=== PATIENT | female | born 1965 | race Caucasian/White ===

== ENCOUNTER 2020-04-28 08:03 | Outpatient (NON) | payer BC, SELFPAY ==
[2020-04-28 21:41] LABS: SARS-CoV-2 RNA PCR Negative
== END 2020-04-28 08:04 ==
PROVIDERS: Family Provider Emergency Medicine; PCP Emergency Medicine; Visit Provider Emergency Medicine
DX: B34.9 Viral infection, unspecified (principal); Z20.822 Contact with and (suspected) exposure to COVID-19
CPT/HCPCS: C9803; U0003; U0005

== ENCOUNTER 2020-05-11 13:42 | Emergency (ER) | payer BC, SELFPAY ==
--- NOTE | 2020-05-11 13:48 | ED.FEMALEGU ---
HPI - Female Genitourinary General Chief complaint: Urogenital-Female Stated complaint: PAINFUL URINATION Time Seen by Provider: 05/11/20 13:48 Source: patient and RN notes reviewed Mode of arrival: ambulatory Limitations: no limitations History of Present Illness HPI Narrative: 55 year old female who presents to [facility] care with complaints of dysuria, painful lower abdominal discomfort over her suprapubic region, urinary frequency and urgency. Patient states that she had virtual visit with her physician on the and was put on Bactrim for her symptoms with no improvement in her symptoms, states Bactrim makes her feel like she is hallucinating at times. Patient states history of difficulty with emptying of bladder and also history of some problems with constipation. Patient states that she is taking AZO at this time for her symptoms with urine noted to be orangy in color. MD elicited complaint: dysuria, UTI and other (urgency and frequency) Pertinent past history: recurrent UTIs Location of symptoms: suprapubic Severity: moderate Female Urogenital Radiation: Suprapubic Severity scale (1-10): 8 Quality of pain: sharp and aching Consistency: progressively worsening Vaginal discharge: none Vaginal bleeding: none Urinary symptoms: Dysuria, Urgency, Frequency and Hematuria Exacerbating factors: urination Relieving factors: none Associated symptoms: abdominal pain Treatment prior to arrival: other (on Bactrim) Sexual activity: No Patient : No Related Data Home Medications Medication Instructions Recorded Confirmed alprazolam 05/11/20 escitalopram oxalate mg 05/11/20 sertraline mg 05/11/20 zolpidem 05/11/20 Allergies Allergy/AdvReac Type Severity Reaction Status Date / Time blue dye Allergy Mild Hives / Verified 04/23/17 10:08 Red Face iodine Allergy Unknown Hives / Verified 04/23/17 10:08 Red Face Review of Systems Review of Systems: Narrative: CONSTITUTIONAL: Denies fever, chills, or sweats. EYES: Denies visual changes, redness, or discharge. ENT: Denies rhinorrhea, congestion, sore throat, or otalgia. CARDIOVASCULAR: Denies chest pain, palpitations, or edema. RESPIRATORY: Denies cough or dyspnea. GASTROINTESTINAL: Positive for suprapubic abdominal pain,no nausea, vomiting, or diarrhea. GENITOURINARY: Positive for dysuria and hematuria. SKIN: Denies rash or itching. MUSCULOSKELETAL: Denies back pain, joint pain, or myalgia. NEUROLOGIC: Denies headache, numbness, or weakness. PSYCHIATRIC: Positive history of anxiety or depression. All systems reviewed & are unremarkable except as noted in HPI and below PMFSH Past Medical History Medical History (Updated 05/11/20 @ 17:07 by Leora Cross NP) Depression Keratosis Retention of urine, unspecified UTI (urinary tract infection) Surgical History Surgical History (Updated 05/11/20 @ 17:08 by Leora Cross NP) History of carpal tunnel surgery Family History Family History (Updated 05/11/20 @ 17:10 by Leora Cross NP) Other No significant family history Social History Social History (Updated 05/11/20 @ 17:10 by Leora Cross NP) Smoking status: Unknown if ever smoked Alcohol intake: unknown Substance use: never Gender identity (if verbalized by the patient): Female Comments At time of signature, agree with nursing past medical, surgical, social and family history. There is no relevant family history pertinent to the presenting complaint Exam Narrative: Exam Narrative: GENERAL: Well-appearing, well-nourished, and in no acute distress. HEAD: Normocephalic, atraumatic. EYES: PERRLA and EOMI. ENT: Nares clear, no rhinorrhea or epistaxis. Mucous membranes moist.TMs normal with good light reflex, throat pink with no redness or pain NECK: Supple.no lymphadenopathy CHEST: Clear to auscultation. No respiratory distress.SAO2 100% on room air HEART: Regular rate and rhythm. No murmur heard. Normal periphera
[2020-05-11 13:49] VITALS: BP 125/76; PULSE 111; RESP 16; TEMP 36.9; O2SAT 100
== END 2020-05-11 14:20 | disposition home or self-care (01) ==
PROVIDERS: Emergency Provider Registered Nurse; PCP Emergency Medicine
DX: N39.0 Urinary tract infection, site not specified (principal); F32.9 Major depressive disorder, single episode, unspecified
CPT/HCPCS: 81003; 87086; 99213; G0463

== ENCOUNTER 2020-05-19 08:38 | Emergency (ER) | payer BC, SELFPAY ==
[2020-05-19 08:56] VITALS: BP 125/69; PULSE 88; RESP 16; TEMP 36.4; O2SAT 100
--- NOTE | 2020-05-19 08:59 | ED.FEMALEGU ---
HPI - Female Genitourinary General Chief complaint: Urogenital-Female Stated complaint: urinary issues Time Seen by Provider: 05/19/20 08:50 Source: patient Mode of arrival: ambulatory Limitations: no limitations History of Present Illness HPI Narrative: A 55-year-old female comes into the emergency room for multiple complaints. Patient has multiple withstanding chronic issues that she states seem to be bothering her today. She is going to physical therapy for pelvic floor dysfunction. She notes a lot of pain and cramping in her pelvis. She states that this is consistent with her chronic pain. Patient is also complaining of a burning sensation through her stomach and up into her chest. She states that this gets worse after eating and drinking. She has not taken any medications for this. She endorses a lot of belching associated with this. Patient also notes that she has had numbness on the right side of her face for 1 month. This has been unchanged. Related Data Home Medications Medication Instructions Recorded Confirmed alprazolam 05/11/20 escitalopram oxalate mg 05/11/20 sertraline mg 05/11/20 zolpidem 05/11/20 Allergies Allergy/AdvReac Type Severity Reaction Status Date / Time blue dye Allergy Mild Hives / Verified 05/19/20 09:03 Red Face iodine Allergy Unknown Hives / Verified 05/19/20 09:03 Red Face sulfamethoxazole AdvReac Hallucinati Verified 05/19/20 09:03 [From Bactrim] ng trimethoprim [From Bactrim] AdvReac Hallucinati Verified 05/19/20 09:03 ng Review of Systems Review of Systems: Narrative: CONSTITUTIONAL: Denies fever, chills, or sweats. EYES: Denies visual changes, redness, or discharge. ENT: Denies rhinorrhea, congestion, sore throat, or otalgia. CARDIOVASCULAR: Denies chest pain, palpitations, or edema. RESPIRATORY: Denies cough or dyspnea. GASTROINTESTINAL: Denies abdominal pain, nausea, vomiting, or diarrhea. GENITOURINARY: Denies dysuria or hematuria. SKIN: Denies rash or itching. MUSCULOSKELETAL: Denies back pain, joint pain, or myalgia. NEUROLOGIC: Denies headache, numbness, dizziness, or weakness. PSYCHIATRIC: Denies anxiety or depression. [facility] Past Medical History Medical History Depression Keratosis Retention of urine, unspecified UTI (urinary tract infection) Surgical History Surgical History History of carpal tunnel surgery Family History Family History Father FH: prostate cancer Depression Grandparent Breast cancer Social History Social History Smoking status: Unknown if ever smoked Alcohol intake: never Substance use: never Gender identity (if verbalized by the patient): Female Exam Narrative: Exam Narrative: GENERAL: Well-appearing, well-nourished, and in no acute distress. HEAD: Normocephalic, atraumatic. EYES: PERRLA and EOMI. ENT: Nares clear, no rhinorrhea or epistaxis. Mucous membranes moist. Oropharynx without tonsillar hypertrophy exudate or other lesions. Bilateral TMs pearly cannon nonbulging NECK: Supple. No adenopathy or masses. No carotid bruits or JVD CHEST: Clear to auscultation. No respiratory distress. No wheezes rales or rhonchi HEART: Regular rate and rhythm. No murmur heard. Normal peripheral pulses. ABDOMEN: Soft, nontender, nondistended, normal active bowel sounds. EXTREMITIES: Normal range of motion. No edema. SKIN: Warm, dry, no rash. NEURO: No focal deficits. Alert and oriented x3. PSYCH: Normal mood and affect. Course Reevaluation(s) Reevaluation #1: Patient resting comfortably at this time, reevaluated her after she got the GI cocktail. Noted that some of her symptoms had improved. Explained to the patient that is most of her symptoms and issues were chronic she needs to follow-up with
[2020-05-19 09:10] LABS: Basophils Percent Auto 0.6 % (0.2-1.2); Eosinophils Absolute Auto 0.1 K/mm3 (0-0.3); Eosinophils Percent Auto 1.7 % (0-4.4); Hematocrit 40.4 % (37.0-47.0); Hemoglobin 13.1 g/dL (12.0-15.0); Immature Granulocyte Absolute 0.02 K/mm3 (0.00-0.031); Immature Granulocyte Percent A 0.4 % (0-0.5); Lymphocytes Absolute Auto 0.56 K/mm3 (0.9-3.2); Lymphocytes Percent Auto 11.6 % (18.3-44.2); Mean Corpuscular HGB Conc 32.4 g/dl (32-36); Mean Corpuscular Hemoglobin 27.7 pg (26-34); Mean Corpuscular Volume 85.4 fl (80-100); Mean Platelet Volume 9.3 fl (7.4-10.4); Monocytes Absolute Auto 0.4 K/mm3 (0.1-0.6); Monocytes Percent Auto 8.7 % (2.6-8.5); Neutrophils Absolute Auto 3.7 K/mm3 (1.3-6.7); Platelet Count Result 241 k/mm3 (150-375); Red Blood Count 4.73 M/mm3 (4.2-5.4); Red Cell Distribution Width 14.4 % (11.5-14.5); White Blood Count 4.8 K/mm3 (4.5-10.0)
[2020-05-19 09:21] LABS: Alanine Aminotransferase 11 U/L (4-35); Albumin Level 4.5 g/dL (3.5-5.1); Alkaline Phosphatase 73 U/L (38-126); Anion Gap 10 mmol/L (8-16); Aspartate Amino Transferase 21 U/L (14-36); Bilirubin,Total 0.7 mg/dL (0.2-1.3); Blood Urea Nitrogen 12 mg/dL (7-17); Calcium 9.3 mg/dL (8.4-10.2); Carbon Dioxide 24 mmol/L (22-30); Chloride 107 mmol/L (98-107); Estimated CRCL calculation 50 ml/min; Estimated Glomerular Filt Rate > 60; Glucose 115 mg/dL (65-105); Potassium 3.7 mmol/L (3.4-5.0); Sodium 141 mmol/L (137-145)
[2020-05-19 09:23] LABS: Add Urine Microscopic? YES; Appearance Urine Clear (Clear); Bacteria Urine Trace /hpf; Bilirubin Urine Negative (Negative); Blood Urine 3+ (Negative); Color Urine Yellow (Yellow); Glucose Urine UA Negative (Negative); Ketones Urine Trace mg/dL (Negative); Leukocyte Esterase Ur Trace LEU/UL (Negative); Mucus Urine Few /lpf; Nitrate Urine Negative (Negative); Protein Urine 1+ mg/dL (Negative); RBC Urine 21-50 /hpf (0-2); Specific Grav Ur 1.024 (1.001-1.035); Squamous Epithelial Cell Urine Occasional /hpf (Few); Urobilinogen Urine Negative mg/dL (<2.0)
[2020-05-19] MEDS: KETOROLAC 30 MG/ML VIAL (*BKC) 15 MG IV PUSH (09:28)
[2020-05-19] MEDS: HYDROcodone/acetaminophen (*CRX) 5-325 MG TABLET 1 TAB PO (09:29)
[2020-05-19] MEDS: methocarbamoL 500 MG TABLET PO (09:29)
--- NOTE | 2020-05-19 09:31 | ECG_ITS ---
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
--- NOTE | 2020-05-19 09:33 | PC.NURSE ---
Patient now reports that the burning on her right side is traveling down into her chest and that she is having chest pain from her neck to her breast. EDP aware, EKG order placed.
[2020-05-19 09:37] VITALS: BP 130/77; PULSE 72; RESP 18; O2SAT 99
[2020-05-19 10:11] LABS: Lipase 97 U/L (23-300)
[2020-05-19] MEDS: BELLADONNA ALK/PHENOB ELIX 10 ML, MAG HYDROX/ALUMINUM HYD/SIMETH 30 ML, LIDOCAINE HCL 2... PO (10:16)
[2020-05-19 10:24] LABS: Troponin I < 0.012 ng/mL (0.000-0.034)
[2020-05-19] MEDS: ONDANSETRON INJ 4 MG/2 ML VIAL (12:30)
[2020-05-19 12:31] VITALS: BP 124/70; BP 134/72; PULSE 78; PULSE 84; RESP 16; O2SAT 97; O2SAT 99
--- NOTE | 2020-05-19 12:33 | PC.NURSE ---
1225- pt c/ nausea vomited small amount frothy liquid. Dr. Ravi aware. orders received and carried out.
== END 2020-05-19 12:41 | disposition home or self-care (01) ==
PROVIDERS: Emergency Provider Emergency Medicine; PCP Emergency Medicine
DX: R10.2 Pelvic and perineal pain (principal); K21.9 Gastro-esophageal reflux disease without esophagitis; F32.9 Major depressive disorder, single episode, unspecified; Z87.440 Personal history of urinary (tract) infections
CPT/HCPCS: 36415; 80053; 81001; 83690; 84484; 85025; 93005; 96374; 96375; 99284; A9270; J1885; J2405

== ENCOUNTER → 2020-07-13 15:19 | Outpatient (CLI) | payer BC, SELFPAY ==
--- NOTE | ~2020-07-13 | US_ITS ---
US renal BI DATE: 07/13/2020 15:44 INDICATION: Hematuria. Urinary urgency, pain and burning. TECHNIQUE: Real-time imaging of the kidneys and urinary bladder COMPARISON: 11/29/2006 ultrasound of the kidneys FINDINGS: Right kidney measures approximately 9.0 cm length, left kidney 9.6 cm. No renal mass lesion or hydronephrosis is evident. The urinary bladder is unremarkable. IMPRESSION: No evidence of hydronephrosis Reviewed, dictated and finalized at Location [facility]. Reviewed, dictated and finalized at location A.
--- NOTE | ~2020-07-13 | MM_ITS ---
EXAMINATION: MM screening shin BI w isabela HISTORY: Screening TECHNIQUE: Craniocaudal and mediolateral oblique 3-D tomosynthesis images were obtained and synthetic 2-D images were generated. CAD analysis was submitted and interpreted. COMPARISON: Comparison to multiple prior studies sequentially, with oldest reviewed study dated 03/02. BREAST PARENCHYMAL COMPOSITION: The breasts are extremely dense, which lowers the sensitivity of mamm ography FINDINGS: There is no evidence of suspicious mass, calcification, or architectural distortion to sugg est malignancy in either breast. There has been no suspicious interval change. IMPRESSION: 1. No mammographic evidence of malignancy. 2. Recommend routine screening mammography in one year. BI-RADS Category 1: Negative Reviewed, dictated and finalized at location A.
== END ==
PROVIDERS: PCP Family Medicine; Visit Provider Family Medicine
DX: Z12.39 Encounter for other screening for malignant neoplasm of breast (principal); R31.9 Hematuria, unspecified; M62.89 Other specified disorders of muscle
CPT/HCPCS: 76775; 77063; 77067

== ENCOUNTER 2020-10-25 14:40 | Outpatient (CLI) | payer BC, SELFPAY ==
--- NOTE | ~2020-10-25 | XR_ITS ---
XR ankle RT min 3V 10/25/2020 14:56 Indication: Right ankle pain Procedure: 4 views right ankle Comparison: No prior studies for comparison. Findings: There is an oblique minimally displaced distal fibular fracture. Ankle mortise intact. Noemí r dome is normal. There is moderate lateral soft tissue swelling. No other fracture. Impression: 1: Oblique minimally displaced distal fibular fracture. Reviewed, dictated and finalized at location A. Impression: 1: Oblique minimally displaced distal fibular fracture.
== END 2020-10-25 14:41 ==
PROVIDERS: PCP Family Medicine; Visit Provider Physician Assistant
DX: S82.434A Nondisplaced oblique fracture of shaft of right fibula, initial encounter for closed fracture (principal)
CPT/HCPCS: 73610

== ENCOUNTER → 2021-08-25 15:08 | Outpatient (CLI) | payer BC, SELFPAY ==
--- NOTE | ~2021-08-25 | MM_ITS ---
EXAMINATION: MM screening shin BI w isabela HISTORY: Screening mammogram TECHNIQUE: Craniocaudal and mediolateral oblique 3-D tomosynthesis images were obtained and synthetic 2-D images were generated. CAD analysis was submitted and interpreted. COMPARISON: 07/13/2020, 05/13/2017, 02/28/2015 bilateral screening mammogram examinations BREAST PARENCHYMAL COMPOSITION: The breasts are heterogeneously dense, which may obscure small masses . FINDINGS: There is no evidence of suspicious mass, calcification, or architectural distortion to sugg est malignancy in either breast. There has been no suspicious interval change. IMPRESSION: 1. No mammographic evidence of malignancy. 2. Recommend routine screening mammography in one year. BI-RADS Category 1: Negative Reviewed, dictated and finalized at location A.
== END ==
PROVIDERS: PCP Family Medicine; Visit Provider Family Medicine
DX: Z12.31 Encounter for screening mammogram for malignant neoplasm of breast (principal)
CPT/HCPCS: 77063; 77067

== ENCOUNTER → 2023-08-28 14:57 | Outpatient (CLI) | payer OTHER, SELFPAY ==
--- NOTE | ~2023-08-28 | XR_ITS ---
EXAM: XR knee RT min 4V, XR knee LT min 4V DATE: 08/28/2023 15:20 HISTORY: RT and LT knee pain/swelling when kneeling/months/no injury . COMPARISON: None available. FINDINGS: Decreased mineralization. No fracture or dislocation. Old proximal tibial NOF. Tricompartm ental right knee osteoarthritis, moderate in the medial compartment. Tricompartmental mild left knee osteoarthritis. No erosion or periosteal change. Soft tissues within normal limits. Small volume bila teral joint effusions. IMPRESSION: No acute osseous finding in the right or left knees. Reviewed, dictated and finalized at location K. IMPRESSION: No acute osseous finding in the right or left knees.
== END ==
PROVIDERS: PCP Nurse Practitioner Family; Visit Provider Nurse Practitioner Family
DX: M25.561 Pain in right knee (principal); M25.562 Pain in left knee
CPT/HCPCS: 73564

== ENCOUNTER 2024-04-13 08:45 | Outpatient (CLI) | payer OTHER, SELFPAY ==
--- NOTE | ~2024-04-13 | MM_ITS ---
EXAMINATION: MM screening shin BI w isabela HISTORY: Screening mammogram TECHNIQUE: Craniocaudal and mediolateral oblique 3-D tomosynthesis images were obtained and synthetic 2-D images were generated. CAD analysis was submitted and interpreted. COMPARISON: 08/25/2021, 07/13/2020 BREAST PARENCHYMAL COMPOSITION:Dense: The breasts are heterogeneously dense, which may obscure small masses. FINDINGS: No suspicious mass, calcification, or architectural distortion are identified in either jas ast to suggest malignancy. There has been no suspicious interval change. IMPRESSION: No mammographic evidence of malignancy. Recommend routine screening mammography in one year. BI-RADS Category 1: Negative Reviewed, dictated and finalized at location . 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
== END 2024-04-13 08:46 | disposition home or self-care (01) ==
LOC: ANHIMG 08:47
PROVIDERS: PCP Nurse Practitioner Family; Visit Provider Nurse Practitioner Family
DX: Z12.31 Encounter for screening mammogram for malignant neoplasm of breast (principal)
CPT/HCPCS: 77063; 77067

== ENCOUNTER 2024-06-01 06:53 | Outpatient (CLI) | payer OTHER, SELFPAY | END 2024-06-01 06:54 | disposition home or self-care (01) | PROVIDERS: PCP Nurse Practitioner Family; Visit Provider Nurse Practitioner Family | DX: R92.30 Dense breasts, unspecified (principal); N64.4 Mastodynia | CPT/HCPCS: 77049; A9577; C8908 ==

== ENCOUNTER 2024-07-01 12:30 | Emergency (ER) | payer OTHER, SELFPAY ==
--- NOTE | ~2024-07-01 | CT_ITS ---
EXAMINATION: CT abdomen pelvis w con DATE: 07/01/2024 16:54 INDICATION: Abdominal pain TECHNIQUE: Computed tomography (CT) of the abdomen and pelvis was performed with 100 mL Omnipaque-350 intravenous contrast. Automated exposure control and iterative reconstruction technique were employe d. The dose-length product was 213.23 mGy-cm. COMPARISON: None FINDINGS: Discoid atelectasis in the bilateral lower lobes. Heart size is normal. No pericardial or pleural eff usion. There are few small hepatic cysts the largest measuring up to 1 cm. Dependent sludge versus ti ny gallstones within the normal-appearing gallbladder. No intrahepatic extrahepatic ductal or ductal dilation. Subtle subcentimeter hypoenhancing splenic lesion most likely a hemangioma. Pancreas and bi lateral adrenal glands are normal. There are small bilateral renal cysts measuring up to 7 mm in the left kidney. Normal appendix. Scattered fluid throughout the colon consistent with nonspecific diarrh ea. No bowel obstruction. Bladder is normal. Anteverted uterus and bilateral adnexa are unremarkable. No free intraperitoneal gas or fluid. No pathologically enlarged abdominal or pelvic lymphadenopathy . Increased prominence of the bilateral parametrial vessels and left gonadal vein which can be seen w ith pelvic vasculature congestion syndrome. Mild lumbar and lower thoracic spondylosis. Transitional L5 segment, sacralized on the left. IMPRESSION: 1. Fluid throughout the colon consistent with nonspecific diarrhea. Correlate clinically for gastroen teritis. 2. Sludge versus tiny gallstones in the otherwise normal gallbladder. No intra or extra hepatic bilia ry ductal dilation. Reviewed, dictated and finalized at location A. IMPRESSION: 1. Fluid throughout the colon consistent with nonspecific diarrhea. Correlate c linically for gastroenteritis. 2. Sludge versus tiny gallstones in the otherwise normal gallbladder. No intra or extra hepatic biliary ductal dilation.
--- NOTE | ~2024-07-01 | XR_ITS ---
XR abdomen/kub 1V 07/01/2024 14:31 INDICATION: Constipation TECHNIQUE: KUB COMPARISON: None FINDINGS: Bowel gas pattern is normal. There is no evidence of free air, mass, organomegaly, ascites or obstruction. No abnormal calculi are seen. There are pelvic phleboliths. The bones appear intact . IMPRESSION: 1: No acute abdominal abnormality identified. Reviewed, dictated and finalized at location A.
[2024-07-01 12:33] VITALS: BP 147/89; PULSE 104; RESP 16; TEMP 36.8; O2SAT 100
--- NOTE | 2024-07-01 12:37 | ED.ABDPAIN ---
HPI - Abdominal Pain General Chief Complaint: Abdominal Pain Stated Complaint: constipated Time Seen by Provider: 07/01/24 12:33 Source: patient Mode of arrival: ambulatory Limitations: no limitations History of Present Illness HPI narrative: 59 years old white female came to the ED from home complaining of lower abdominal pain and no bowel movement for the last 7 days. She denies any fever, chills, nausea, vomiting or urinary symptoms. Patient denies having similar symptoms in the past. History of anxiety, depression. She does not smoke or drink or use drugs. No history of abdominal surgery. Patient been using [id number] medication including Fleet enema without any response Related Data Allergies Allergy/AdvReac Type Severity Reaction Status Date / Time blue dye Allergy Mild Hives / Verified 05/18/24 12:58 Red Face sulfamethoxazole (From AdvReac Hallucinati Verified 05/18/24 12:58 Bactrim) ng trimethoprim (From Bactrim) AdvReac Hallucinati Verified 05/18/24 12:58 ng Review of Systems Review of Systems: All systems reviewed & are unremarkable except as noted in HPI and below PMFSH Past Medical History Medical History Breast pain, left Dense breast tissue on mammogram Dense breast Dysuria Right knee pain Left knee pain Microscopic hematuria Screening for breast cancer Seasonal allergies Skin Abnormalities Seborrheic keratosis Insomnia Anxiety Encounter to establish care Pelvic floor dysfunction Sciatica Keratosis Retention of urine, unspecified Depression UTI (urinary tract infection) Surgical History Surgical History History of carpal tunnel surgery Family History Family History Father FH: prostate cancer Depression Grandparent Breast cancer Social History Social History Smoking status: Never smoker Alcohol intake: never Substance use: never Lack of Transportation: No Lack of Food: Never True Current Housing: I Have Housing Concerned About Future Housing: No Difficulty Paying Gas/Electric Bills: No Difficulty Paying for Meds: No Currently Unemployed: YES Education: Trade/Vocational Certificate Difficulty w/ Childcare or Family Care: No Gender identity (if verbalized by the patient): Female Exam Narrative: General appearance: Well-developed, well-nourished Skin: Normal color Head: Normocephalic, nontraumatic Eyes: Clear conjunctiva ENT: Oropharynx normal, ears normal, nose normal Neck: Supple, nontender Chest and respiratory: Airway patent, no respiratory distress, no accessory muscle use Heart: Regular rate/rhythm Abdomen: Soft, mild suprapubic tenderness, no organomegaly, quiet bowel sounds Vascular: Normal peripheral pulses, normal capillary refill. 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, no gross motor deficit Course Vital Signs Vital signs: Vital Signs Temperature 36.8 C 07/01/24 12:33 Pulse Rate 104 H 07/01/24 12:33 Respiratory Rate 16 07/01/24 12:33 Blood Pressure 147/89 H 07/01/24 12:33 Pulse Oximetry 100 07/01/24 12:33 Oxygen Delivery Room Air 07/01/24 12:33 Temperature 36.7 C 07/01/24 17:19 Pulse Rate 97 07/01/24 17:19 Respiratory Rate 18 07/01/24 17:19 Blood Pressure 123/89 07/01/24 17:19 Pulse Oximetry 100 07/01/24 17:19 Oxygen Delivery Room Air 07/01/24 12:33 MDM - Abdominal Pain MDM Narrative Medical decision making narrative: Patient came with abdominal pain and constipation for 7 days Vital signs showing blood pressure 147/89 otherwise insignificant abnormality Physical examination showing mild tenderness suprapubic area Differential diagnosis include constipation, urinary tract infection, colitis, diverticulitis, intra-abdominal tumor. Blood workup today includes CBC, CMP, lipase showed WBC 5.1, HEMOGLOBIN 15.3, CREATININE 1.0, OTHERWISE INSIGNIFICANT Urinalysis showed 3+ BLOOD WHICH COULD BE INDICATING URINARY TRACT INFECTION PATIENT PRESENTED WITH SUPRAPUBIC PAIN CT abdomen and pelvis with IV contrast showed FLUID THROUGH OUT THE COLON CONSISTENT WITH NONSPECIFIC DIARRHEA WHICH HIGH LIKELY SECONDARY TO [id number] STOOL SOFTENER AND LAXATIVE OVER THE LAST 7 DAYS. DIAGNOSIS ABDOMINAL PAIN, HEMATURIA PATIENT HAS BEEN VISITING THE BATHROOM BACK IN 4 SINCE ARRIVAL TO THE EMERGENCY ROOM WITH QUITE A BIT OF DIARRHEA WHICH IS SECONDARY TO THE X-RAY LAXATIVE AND STOOL SOFTENER HAD IN THE LAST FEW DAYS DISCHARGED ON CIPRO 500 B.I.D. FOR 5 DAYS, METAMUCIL, DICYCLOMINE DISCHARGE THE PT WAS DISCHARGED TO HOME.THE PT,S CONDITION UPON DISCHARGE WAS FAIR,EDUCATION WAS PROVIDED TO THE PT IN REFERENCE TO THE FINAL IMPRESSION,DISCHARGE STUDY RESULTS,TREATMENT,PROGNOSIS AND NEED FOR FOLLOW UP . Differential Diagnosis Differential diagnosis: Likely other ( ABOVE) Medical Records Attestation: I reviewed the patient's medical records. Lab Data Attestation: I reviewed the patient's lab results. 07/01/24 14:08 07/01/24 14:08 Labs: Lab Results 07/01/24 Range/Units 14:08 WBC 5.1 (4.5-10.0) K/mm3 RBC 5.08 (4.2-5.4) M/mm3 Hgb 15.3 H (12.0-15.0) g/dL Hct 44.7 (37.0-47.0) % MCV 88.0 (80-100) fl MCH 30.1 (26-34) pg MCHC 34.2 (32-36) g/dl RDW 12.7 (11.5-14.5) % Plt Count 249 (150-375) k/mm3 MPV 10.4 (7.4-10.4) fl Immature Gran % (Auto) 0.4 (0-0.5) % Neut % (Auto) 75.2 H (45.5-73.1) % Lymph % (Auto) 13.5 L (18.3-44.2) % [place] % (Auto) 8.0 (2.6-8.5) % Eos % (Auto) 2.3 (0-4.4) % Baso % (Auto) 0.6 (0.2-1.2) % Lymph # (Auto) 0.69 L (0.9-3.2) K/mm3 [place] # (Auto) 0.4 (0.1-0.6) K/mm3 Eos # (Auto) 0.1 (0-0.3) K/mm3 Baso # (Auto) 0.0 (0.0-0.1) K/mm3 Abs Immat Gran (auto) 0.02 (0.00-0.031) K/mm3 Absolute Neuts (auto) 3.9 (1.3-6.7) K/mm3 Absolute Nucleated RBC 0.000 (0.0-0.012) K/mm3 Nucleated RBC % 0.0 (0.0-0.2) % Sodium 140 (137-145) mmol/L Potassium 3.8 (3.4-5.0) mmol/L Chloride 108 H (98-107) mmol/L Carbon Dioxide 17 L (22-30) mmol/L Anion Gap 15 H (4-12) mmol/L BUN 12 (7-17) mg/dL Creatinine 1.01 H (0.7-1.0) mg/dL Estim Creat Clear Calc 39 ml/min Estimated GFR 56 L (59 - ) Glucose 105 (65-110) mg/dL Calcium 9.9 (8.4-10.2) mg/dL Total Bilirubin 0.7 (0.2-1.3) mg/dL AST 25 (14-36) U/L ALT 16 (6-35) U/L Alkaline Phosphatase 92 (38-126) U/L Total Protein 8.0 (6.3-8.2) g/dL Albumin 5.0 (3.5-5.1) g/dL Lipase 109 (23-300) U/L Urine Color Yellow (Yellow) Urine Appearance Clear (Clear) Urine pH 5.5 (5.0-9.0) Ur Specific [place] 1.025 (1.001-1.035) Urine Protein Trace (Negative) mg/dL Urine Glucose (UA) Negative (Negative) mg/dL Urine Ketones Trace H (Negative) mg/dL Ur Blood (Man) 3+ H (Negative) Urine Nitrate Negative (Negative) Urine Bilirubin Negative (Negative) Urine Urobilinogen 1.0 (<2.0) mg/dL Leukocyte Esterase Rfl Negative (Negative) OSIEL/UL Urine RBC 21-50 H (0-2) /hpf Urine WBC 0-5 (0-3) /hpf Ur Squamous Epith Cells None seen (Few) /hpf Urine Bacteria None seen /hpf Urine Casts 0-2 Imaging Data Radiologist's impression: ITS Impressions Abdomen X-Ray 07/01/24 14:32 IMPRESSION: 1: No acute abdominal abnormality identified. Abdomen/Pelvis CT 07/01/24 17:12 IMPRESSION: 1. Fluid throughout the colon consistent with nonspecific diarrhea. Correlate clinically for gastroenteritis. 2. Sludge versus tiny gallstones in the otherwise normal gallbladder. No intra or extra hepatic biliary ductal dilation. Critical Care Time Critical Care Time Critical Care Time: No Discharge Plan Discharge Clinical Impression: Abdominal pain, Hematuria Patient Disposition: Home, Self-Care Condition: Stable Instructions: Hematuria (ED), Abdominal Pain (ED) Additional Instructions: RETURN IF SYMPTOMS ARE WORSENING , CALL YOUR FAMILY PHYSICIAN FOR APPOINTMENT, TAKE TYLENOL NEEDED FOR ACHES AND PAIN, CONTINUE HOME MEDICATIONS. STOP LAXATIVE AND ENEMAS ENCOURAGE FLUID INTAKE GET METAMUCIL [id number] Patient Language: Hungarian Prescriptions: New amoxicillin-pot clavulanate [Augmentin] 500-125 mg tablet 1 tablet PO Q12H Qty: 14 0RF No Action buspirone 15 mg tablet 15 mg PO BID Qty: 60 11RF zolpidem [Ambien] 10 mg tablet 5 - 10 mg PO QHS PRN (Reason: insomnia) Qty: 30 5RF bacitracin zinc-polymyxin B 500-10,000 unit/gram ointment 1 applic topical DAILY Qty: 14.2 1RF alprazolam 0.25 mg tablet 0.25 mg PO BID PRN (Reason: anxiety with flying) Qty: 4 0RF trazodone 100 mg tablet 100 mg PO QHS PRN (Reason: insomnia) Qty: 90 3RF Follow-up/Referrals: Letitia Nugent NP [Primary Care Provider] -
--- NOTE | 2024-07-01 13:18 | PC.NURSE ---
Patient ambulated to the restroom with steady gate
[2024-07-01 13:24] VITALS: BP 133/88; PULSE 64; RESP 18; O2SAT 100
[2024-07-01 13:30] VITALS: BP 133/88; PULSE 95; RESP 18; O2SAT 100
--- OUTSIDE RECORDS SUMMARY | 2024-07-01 13:39 | XMS_ITS | Referral Summary ---
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 Name Role Phone Letitia Nugent FANNY Primary Care Provider [phone] Encounters Date Type Department Care Team Description 07/01/2024 12:00 PM CDT Office Visit [facility] at [address] [address] Maryam Segal NP Constipation, unspecified constipation type (Primary Dx); Abdominal pain from Last 3 Months Allergies No known active allergies Medications traZODone (DESYREL) 100 mg tablet Take 1 tablet (100 mg total) by mouth nightly at bedtime 05/14/2024 Active busPIRone (BUSPAR) 15 mg tablet Take 1 tablet (15 mg total) by mouth 2 (two) times a day 06/15/2024 Active Active Problems No known active problems Social History Tobacco Use Types Packs/Day Years Used Date Smoking Tobacco: Never Assessed Comments Unknown Sex and Gender Information Value Date Recorded Sex Assigned at Not on file 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 Gender Identity Not on file Sexual Orientation Not on file Last Filed Vital Signs Vital Sign Reading Time Taken Comments Blood Pressure 115/77 07/01/2024 11:51 AM CDT Pulse 105 07/01/2024 11:51 AM CDT Temperature 36.1 C (97 F) 07/01/2024 11:51 AM CDT Respiratory Rate 18 07/01/2024 11:5 1 AM CDT Oxygen Saturation 97% 07/01/2024 11: 51 AM CDT Inhaled Oxygen Concentration - - Weight 51.1 kg (112 lb 11.2 oz) 025 11:51 AM CDT Height 149.9 cm (4' 11 ) 07/01/2024 11: 51 AM CDT Body Mass Index 22.76 07/01/2024 11:51 AM CDT Plan of Treatment Not on file Insurance [facility] Care Teams Back Shoe Cutter Relationship Specialty Start Date End Date Letitia Nugent NP [address] [address] PCP - General Family Medicine 07/01/24
--- OUTSIDE RECORDS SUMMARY | 2024-07-01 13:39 | XMS_ITS | Clinical Summary ---
Author Organization [address] [address] Care Team Providers Care Tube Roller Name Role Phone Letitia Nugent FANNY Primary Care Provider [phone] Allergies No known active allergies Medications traZODone (DESYREL) 100 mg tablet Take 1 tablet (100 mg total) by mouth nightly at bedtime 05/14/2024 Active busPIRone (BUSPAR) 15 mg tablet Take 1 tablet (15 mg total) by mouth 2 (two) times a day 06/15/2024 Active Active Problems No known active problems Encounters Date Type Department Care Team Description 07/01/2024 12:00 PM CDT Office Visit [facility] at [address] [address] Maryam Segal NP Constipation, unspecified constipation type (Primary Dx); Abdominal pain from Last 3 Months Social History Tobacco Use Types Packs/Day Years Used Date Smoking Tobacco: Never Assessed Comments Unknown Sex and Gender Information Value Date Recorded Sex Assigned at Not on file 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 Gender Identity Not on file Sexual Orientation [...] 07/01/2024 11:51 AM CDT Plan of Treatment Health Maintenance Due Date Last Done Comments Breast Cancer Screening-Mammogram 1966 Cervical Cancer Screening 1966 Colon Cancer Screening-Colonoscopy 1966 Depression Screening 1966 Hepatitis C Screening 1966 Hepatitis B Screening 01/24/1984 Regular Well Visit/Exam 18-64 01/24/1984 Zoster Vaccine (1 of 2) 01/24/2016 Covid-19 Vaccine (3 - 2023-2 5 season) 2023 09/27/2020, 09/06/2020 Influenza Vaccine (Season Ended) 2024 DTaP/Tdap/Td Vaccine (2 - Td or Tdap) 06/29/2031 06/28/2021 Pneumococcal vaccine <65 Aged Out No longer eligible based on patient's age to complete this topic Insurance [facility] Care Teams Tube Roller Relationship Specialty Start Date End Date Letitia Nugent NP [address] [address] PCP - General Family Medicine 07/01/24
--- OUTSIDE RECORDS SUMMARY | 2024-07-01 13:39 | XMS_ITS | Clinical Summary ---
Author Organization [facility] Address [address] [place] [id number] Care Team Providers Care Manager Merchandise Name Role Phone Unavailable Primary Care Provider Unavailabl e Allergies Active Allergy Reactions Criticality Noted Date Comments Iodine Hives 10/16/2021 Medications sertraline (ZOLOFT) 20 MG/ML concentrated solutionIndicatio ns:GEOFF (generalized anxiety disorder),Mixed obsessional thoughts and acts Take 1.3 mLs (26 mg total) by mouth daily. 60 mL 2 2 Active metroNIDAZOLE (METROGEL) 1 % gelIndications:Ro sacea Apply topically daily. 55 g 2 2 Active zolpidem (AMBIEN) 10 MG tabletIndications :Insomnia, unspecified type Take 1 tablet (10 mg total) by mouth nightly as needed for Sleep. 90 tablet 2 Active estradiol (ESTRACE) 0.1 MG/GM vaginal creamIndications: Pelvic floor dysfunction,Post- menopause Place 2 g vaginally daily. 42.5 g 1 2 Active Active Problems Problem Noted Date Diagnosed Date GEOFF (generalized anxiety disorder) 10/16/2021 Mixed obsessional thoughts and acts 10/16/2021 Rosacea 10/16/2021 Pelvic floor dysfunction 10/16/2021 Insomnia 07/08/2014 Immunizations Name Administration Dates Next Due Tdap (Generic) 06/28/2021 Family History Medical History Relation Comments No Known Problems Father No Known Problems Mother Relation Status Comments Father Alive Mother Alive Social History Tobacco Use Types Packs/Day Years Used Date Smoking Tobacco: Never Smokeless Tobacco: Never Tobacco Cessation:Counseling Given: Yes Comments:counseled by Dr Hernandez Alcohol Use Standard Drinks/Week Comments Not Currently 0 (1 standard drink = 0.6 oz pur e alcohol) PHQ-2 Answer Date Recorded PHQ-2 Score - If the patient scores above 3, please move on to questions 3-9 0 10/16/2021 Comments No Sex and Gender Information Value Date Recorded Sex Assigned at Not on file 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 Gender Identity Not on file Sexual Orientation Not on file Last Filed Vital Signs Vital Sign Reading Time Taken Comments Blood Pressure 111/75 12/06/2021 2:27 PM CDT Pulse 86 12/06/2021 2:27 PM CDT Temperature 36.6 C (97.8 F) 12/06/2021 2:27 PM CDT Respiratory Rate 16 12/06/2021 2:27 PM CDT Oxygen Saturation 100% 12/06/2021 2:27 PM CDT Inhaled Oxygen Concentration - - Weight 44.9 kg (99 lb) 12/06/2021 2:27 PM CDT Height 151.1 cm (4' 11.5 ) 12/06/2021 2:27 PM CD T Body Mass Index 19.66 12/06/2021 2:27 PM CDT Plan of Treatment Health Maintenance Due Date Last Done Comments Cervical Cancer Screening Pa p Smear (Age 30 to 64) Every 3 Years 1966 Hepatitis C 01/24/1984 Hepatitis B Vaccines (1 of 3 - 19+ 3-dose series) 1985 Cervical Cancer Screening Pa p with HPV Testing (Age 30 to 64) Every 5 Years 01/24/1996 Cervical Cancer Screening wi th HPV 01/24/1996 Zoster Vaccines (1 of 2) 01/24/2016 Annual Physical 10/16/2022 10/16/2021 Mammogram Screening 08/26/2023 08/25/2021, 07/13/2020, 05/13/2017 COVID-19 Vaccine (3 - 2023-2 5 season) 2023 09/27/2020, 09/06/2020 Colorectal Cancer Screening Colonoscopy (10 Years) 04/23/2027 04/23/2017 DTaP, Tdap and Td Vaccines ( 2 - Td or Tdap) 06/29/2031 06/28/2021 Meningococcal B Vaccine Aged Out No l onger eligible based on patient's age to complete this topic Meningococcal Vaccine Aged Out No abe barak eligible based on patient's age to complete this topic Pneumococcal Vaccine: Pediatrics (0 to 5 Years) and At-Risk Patients (6 to 64 Years) Aged Out No longer eligible b ased on patient's age to complete this topic RSV Immunizations Under 20 Months Aged Out No longer eligible b ased on patient's age to complete this topic Procedures Procedure Name Priority Date/Time Associated Diagnosis Comments MAMMOGRAM GENERIC (SCAN ORDER) 08/25/2021 COLONOSCOPY GENERIC (SCAN ORDER) 04/23/2017 from Last 3 Months or Most Recently Relevant to Health Maintenance Results * MAMMOGRAM GENERIC (08/25/2021) Anatomical Region Laterality Modality Other 08/25/2021 Narrative 08/25/2021 Ordered by an unspecified provider. us Documents Scanned SCANNING Final Result * COLONOSCOPY GENERIC (04/23/2017) 04/23/2017 Narrative 04/23/2017 Ordered by an unspecified provider. us Documents Scanned SCANNING Final Result from Last 3 Months or Most Recently Relevant to Health Maintenance Insurance [facility]
--- OUTSIDE RECORDS SUMMARY | 2024-07-01 13:39 | XMS_ITS | Encounter Summary ---
Author Organization [facility] Healthcare Address [address] [place] [id number] Care Team Providers Care Ethnic Studies Professor Name Role Phone RaffiLetitia FANNY Primary Care Provider [phone] Reason for Visit * Reason Comments Constipation Have not had a bowel movement in 7 days, nothing over the counter is helping, Encounter Details Date Type Department Care Team (Late st Contact Info) Description 07/01/2024 12:00 PM CDT Office Visit [facility] at [address] [address] Maryam Segal NP [address] [place] [address] [address] [place] [address] Constipation, unspecified constipation type (Primary Dx); Abdominal pain Social History Tobacco Use Types Packs/Day Years Used Date Smoking Tobacco: Never Assessed Comments Unknown Sex and Gender Information Value Date Recorded Sex Assigned at Not on file 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 Subjective/Objective Patient ID: Steffi Grant is a 59 y.o. female. Chief Complaint Constipation (Have not had a bowel movement in 7 days, nothing over the counter is helping, ) Patient presents to the clinic with reports of abdominal pain and not having a bowel movement in atleast the last 7 days, patient was unsure on how long it has actually been. Patient reports that she has taken magnesium citrate, enemas, MiraLax, and stool softeners with no relief of her symptoms. Patient reports that she has not passed gas in the past 2 days. Patient denies any history of abdominal surgeries. Patient denies fevers and vomiting. Review of Systems Constitutional: Negative for chills, fatigue and fever. Respiratory: Negative for cough. Cardiovascular: Negative for chest pain. Gastrointestinal: Positive for abdominal pain and constipation. Negative for diarrhea, nausea, rectal pain and vomiting. Neurological: Negative for weakness and headaches. Physical Exam Vitals reviewed. Constitutional: General: She is not in acute distress. Appearance: Normal appearance. She is not ill-appearing. HENT: Head: Normocephalic. Mouth/Throat: Lips: [place]. Cardiovascular: Rate and Rhythm: Normal rate. Pulmonary: Effort: Pulmonary effort is normal. Breath sounds: Normal breath sounds. Abdominal: General: Bowel sounds are decreased. There is distension. Tenderness: There is generalized abdominal tenderness. Skin: General: Skin is warm. Neurological: Mental Status: She is alert and oriented to person, place, and time. Psychiatric: Mood and Affect: Mood normal. Vitals: 07/01/24 1151 BP: 115/77 Pulse: 105 Resp: 18 Temp: 36.1 ??C (97 ??F) SpO2: 97% Weight: 51.1 kg (112 lb 11.2 oz) Height: 149.9 cm (4' 11 ) Assessment/Plan --Sending patient to ER for further testing and exam for abdominal pain with constipation to rule out bowel obstruction versus acute abdomen. Patient verbalized understanding and states that she [facility] to [facility], declined EMS. Diagnoses and all orders for this visit: Constipation, unspecified constipation type (Primary) Abdominal pain Patient Education: --GO TO ER Disposition Treatment plan including expectations, follow up, and return precautions discussed with patient/parent, verbalizes understanding. Medication dosage, use, and potential adverse reactions discussed with patient/parent. Advised to follow up with PCP if symptoms do not resolve as expected or sooner if condition worsens. Signs/symptoms warranting ER evaluation reviewed. Patient and/or guardian was given an opportunity to ask questions, questions answered. Maryam Segal NP 07/01/24 12:06 PM This office note has been partially dictated using [employer] software, and as a result portions of the record may have been created with this software. Occasional wrong-word or '[id number]' substitutions may have occurred due to the inherent limitations of voice recognition software. Read the chartcarefully and recognize, using context, where substitutions have occurred. Cosigned by Matt Thapa MD at 07/01/2024 1:15 PM CDT documented in this encounter Plan of Treatment Not on file documented as of this encounter Visit Diagnoses Diagnosis Constipation, unspecified constipation type- Primary Abdominal pain Abdominal pain, unspecified site documented in this encounter Historical Medications * This list may reflect changes made after this encounter. busPIRone (BUSPAR) 15 mg tablet Take 1 tablet (15 mg total) by mouth 2 (two) times a day 06/15/2024 traZODone (DESYREL) 100 mg tablet Take 1 tablet (100 mg total) by mouth nightly at bedtime 05/14/2024 added in this encounter Care Teams Ethnic Studies Professor Relationship Specialty Start Date End Date Letitia Nugent NP [address] [address] PCP - General Family Medicine 07/01/24 documented as of this encounter
[2024-07-01 14:14] LABS: Basophils Percent Auto 0.6 % (0.2-1.2); Eosinophils Absolute Auto 0.1 K/mm3 (0-0.3); Eosinophils Percent Auto 2.3 % (0-4.4); Hematocrit 44.7 % (37.0-47.0); Hemoglobin 15.3 g/dL (12.0-15.0); Immature Granulocyte Absolute 0.02 K/mm3 (0.00-0.031); Immature Granulocyte Percent A 0.4 % (0-0.5); Lymphocytes Absolute Auto 0.69 K/mm3 (0.9-3.2); Lymphocytes Percent Auto 13.5 % (18.3-44.2); Mean Corpuscular HGB Conc 34.2 g/dl (32-36); Mean Corpuscular Hemoglobin 30.1 pg (26-34); Mean Platelet Volume 10.4 fl (7.4-10.4); Monocytes Absolute Auto 0.4 K/mm3 (0.1-0.6); Neutrophils Absolute Auto 3.9 K/mm3 (1.3-6.7); Neutrophils Percent Auto 75.2 % (45.5-73.1); Platelet Count Result 249 k/mm3 (150-375); Red Blood Count 5.08 M/mm3 (4.2-5.4); Red Cell Distribution Width 12.7 % (11.5-14.5); White Blood Count 5.1 K/mm3 (4.5-10.0)
[2024-07-01 14:18] LABS: Add Urine Microscopic? YES; Appearance Urine Clear (Clear); Bacteria Urine None Seen /hpf; Bilirubin Urine Negative (Negative); Blood Urine 3+ (Negative); Color Urine Yellow (Yellow); Glucose Urine UA Negative (Negative); Ketones Urine Trace mg/dL (Negative); Leukocyte Esterase Ur Negative LEU/UL (Negative); Nitrate Urine Negative (Negative); Non Pathogenic Casts 0-2; Protein Urine Trace mg/dL (Negative); RBC Urine 21-50 /hpf (0-2); Specific Grav Ur 1.025 (1.001-1.035); Squamous Epithelial Cell Urine None Seen /hpf (Few); WBC Urine 0-5 /hpf (0-3); pH Urine 5.5 (5.0-9.0)
[2024-07-01 14:24] LABS: Alanine Aminotransferase 16 U/L (6-35); Alkaline Phosphatase 92 U/L (38-126); Anion Gap 15 mmol/L (4-12); Aspartate Amino Transferase 25 U/L (14-36); Bilirubin,Total 0.7 mg/dL (0.2-1.3); Blood Urea Nitrogen 12 mg/dL (7-17); Calcium 9.9 mg/dL (8.4-10.2); Carbon Dioxide 17 mmol/L (22-30); Chloride 108 mmol/L (98-107); Estimated CRCL calculation 39 ml/min; Estimated Glomerular Filt Rate 56; Glucose 105 mg/dL (65-110); Lipase 109 U/L (23-300); Potassium 3.8 mmol/L (3.4-5.0); Sodium 140 mmol/L (137-145)
[2024-07-01 17:19] VITALS: BP 123/89; PULSE 97; RESP 18; TEMP 36.7; O2SAT 100
== END 2024-07-01 17:48 | disposition home or self-care (01) ==
PROVIDERS: Emergency Provider Emergency Medicine; PCP Nurse Practitioner Family
DX: R31.9 Hematuria, unspecified (principal); R10.30 Lower abdominal pain, unspecified; F41.9 Anxiety disorder, unspecified; Z87.440 Personal history of urinary (tract) infections; F32.A Depression, unspecified
CPT/HCPCS: 36415; 74018; 74177; 80053; 81001; 83690; 85025; 99284; Q9967

== ENCOUNTER 2024-07-05 09:48 | Emergency (ER) | payer OTHER, SELFPAY ==
--- OUTSIDE RECORDS SUMMARY | 2024-07-05 09:50 | XMS_ITS | Clinical Summary ---
Author Organization [address] [address] Care Team Providers Care Commercial Credit Reviewer Name Role Phone Letitia Nugent FANNY Primary Care Provider [phone] Allergies No known active allergies Medications traZODone (DESYREL) 100 mg tablet Take 1 tablet (100 mg total) by mouth nightly at bedtime 05/14/2024 Active busPIRone (BUSPAR) 15 mg tablet Take 1 tablet (15 mg total) by mouth 2 (two) times a day 06/15/2024 Active Active Problems No known active problems Encounters Date Type Department Care Team Description 07/01/2024 12:00 PM CDT Office Visit 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
--- OUTSIDE RECORDS SUMMARY | 2024-07-05 09:50 | XMS_ITS | Continuity of Care Document ---
Author Organization [facility] Address [address] [place] [address] [place] [address] Phone Care Team Providers Care Material Control Analyst Name Role Phone Edmundo Gaspar MD Unavailable Unavailable Allergies, Adverse Reactions, Alerts Substance Reaction Status Criticality Iodinated Contrast Media Active No Information Medications Medication Instructions Dosage Effective Dates (start - stop) Status Comments Ambien 10 mg tablet take 1 tablet by ora l route every day at bedtime 10 MG - Active Procedures Procedure Date PREV VISIT, EST, AGE 40-64 OFFICE/OUTPATIENT VISIT, EST OFFICE/OUTPATIENT VISIT, EST OFFICE/OUTPATIENT VISIT, EST OFFICE/OUTPATIENT VISIT, EST PREV VISIT, EST, AGE 40-64 OFFICE/OUTPATIENT VISIT, EST OFFICE/OUTPATIENT VISIT, EST OFFICE/OUTPATIENT VISIT, EST OFFICE/OUTPATIENT VISIT, EST OFFICE/OUTPATIENT VISIT, EST PREV VISIT, EST, AGE 40-64 OFFICE/OUTPATIENT VISIT, EST OFFICE/OUTPATIENT VISIT, EST PREV VISIT, EST, AGE 40-64 OFFICE/OUTPATIENT VISIT, EST OFFICE/OUTPATIENT VISIT, EST PREV VISIT, EST, AGE 40-64 OFFICE/OUTPATIENT VISIT, EST PREV VISIT, EST, AGE 40-64 OFFICE/OUTPATIENT VISIT, EST Advance Directives Directive Yes / No Effective Date File Name No Information Encounters Encounter Description Practice Location Reason(s) For Visit Diagnoses Date Provider Providers Copied on Encounter PREV VISIT, EST, AGE 40-65 [facility], [address], [place], [place], [address], [place] tel:[phone] [facility] physical (chief complaint) Encounter for general adult medical exam w abnormal findingsPrimary insomniaAllergic rhinitis due to pollen 3 Hubert Wyatt. [address], [place], [place], [address] , [place]. tel:[phone] Referring Provider: Gissell Crouch [facility] [address], [place], [place], [address]. tel:[phone] OFFICE/OUTPA TIENT VISIT, [facility], [address], [place], [place], [address], [place] tel:[phone] [facility] insomnia1 (chief complaint) sinus1 (chief complaint) postmeno1 (chief complaint) Primary insomniaPostmenopau leny statusNasal congestion 2 Hubert Tuttle [address], [place], [place], [address] , [place]. tel:[phone] Referring Provider: Gissell Crouch [address], [place], [address]. tel:[phone] OFFICE/OUTPA TIENT VISIT, [facility], [address], [place], [place], [address], [place] tel:[phone] [facility] UTI1 (chief complaint) sick (chief complaint) anxiety1 (chief complaint) Generalized Anxiety DisorderUrinary tract infectionViral infection 1 Hubert Tuttle [address], [place], [place], [address] , [place]. tel:[phone] Referring Provider: Gissell Crouch A, [place], [address]. tel:[phone] OFFICE/OUTPA TIENT VISIT, [facility], [address], [place], [place], [address], [place] tel:[phone] [facility] anxiety1 (chief complaint) insomnia1 (chief complaint) low D (chief complaint) hematuria1 (chief complaint) InsomniaHematuriaGe neralized Anxiety DisorderVitamin D deficiency, unspecifiedEncounte r for oth screening for malignant neoplasm of breast 0 Hubert Wyatt. [address], [place], [place], [address] , [place]. tel:[phone] Referring Provider: Gissell Crouch [address], [place], [place], [address]. tel:[phone] PREV VISIT, EST, AGE 40-65 [facility], [address], [place], [place], [address], tel:[phone] [facility] Physical (chief complaint) Encntr for general adult medical exam w/o abnormal findings 0 Hubert Wyatt. [address], [place], [place], [address] , [place]. tel:[phone] Referring Provider: Gissell Crouch [address], [place], [place], [address]. tel:[phone] OFFICE/OUTPA TIENT VISIT, EST [facility], [address], [place], [place], [address], [place] tel:[phone] [facility] insomnia1 (chief complaint) Insomnia 9 Hubert Wyatt. [address], [place], [place], [address] , [place]. tel:[phone] Referring Provider: Gissell Crouch [address], [place], [place], [address]. tel:[phone] OFFICE/OUTPA TIENT VISIT, EST [facility], [address], [place], [place], [address], [place] tel:[phone] [facility] insomnia1 (chief complaint) Insomnia 9 Hubert Wyatt. [address], [place], [place], [address] , [place]. tel:[phone] Referring Provider: Edmundo Gaspar, [address], [place], [place], [address]. tel:[phone] OFFICE/OUTPA TIENT VISIT, [facility], [address], [place], [place], [address], [place] tel:[phone] [facility] insomnia1 (chief complaint) Insomnia 8 Hubert Wyatt. [address], [place], [place], [address] , [place]. [phone] Referring Provider: Edmundo Gaspar, [address], [place], [place], [address]. tel:[phone] OFFICE/OUTPA TIENT VISIT, [facility], [address], [place], [place], [address], [place] [phone] [facility] insomnia1 (chief complaint) Insomnia 8 Hubert Wyatt. [address], [place], [place], [address] , [place]. [phone] Referring Provider: Edmundo Gaspar, [address], [place], [place], [address]. tel:[phone] OFFICE/OUTPA TIENT VISIT, [facility], [address], [place], [place], [address], [place] tel:[phone] [facility] insomnia1 (chief complaint) colon Ca (chief complaint) InsomniaEncounter for screening for malignant neoplasm of colon 8 Hubert Wyatt. [address], [place], [place], [address] , [place]. [phone] Referring Provider: Gissell Crouch [address], [place], [place], [address]. tel:[phone] PREV VISIT, EST, AGE 40-65 [facility], [address], [place], [place], [address], [place] tel:[phone] [facility] PHysical (chief complaint) Encounter for general adult medical exam w abnormal findingsInsomniaHem aturia 0 7 Hubert Wyatt. [address], [place], [place], [address] , [place]. [phone] Referring Provider: Gissell Crouch [address], [place], [place], [address]. tel:[phone] OFFICE/OUTPA TIENT VISIT, EST [facility], [address], [place], [place], [address], [place] [phone] [facility] hematuria1 (chief complaint) insomnia1 (chief complaint) depression 1 (chief complaint) InsomniaDepressionH ematuria 7 Hubert Wyatt. [address], [place], [place], [address] , [place]. tel:[phone] Referring Provider: Gissell Crouch [address], [place], [place], [address]. tel:[phone] PREV VISIT, EST, AGE 40-65 [facility], [address], [place], [place], [address], [place] [phone] [facility] Physical (chief complaint) Encounter for general adult medical exam w abnormal findingsInsomnia, unspecifiedHematuri a 6 Hubert Wyatt. [address], [place], [place], [address] , [place]. tel:[phone] Referring Provider: Gissell Crouch [address], [place], [place], [address]. tel:[phone] OFFICE/OUTPA TIENT VISIT, EST [facility], [address], [place], [place], [address], [place] [phone] [facility] sinus (chief complaint) depression (chief complaint) Chronic sinusitisInsomnia, unspecifiedChronic depression 5 Hubert Tuttle [address], [place], [address] , [place]. tel:[phone] Referring Provider: Gissell Crouch [address], [place], [place], [address]. tel:[phone] PREV VISIT, EST, AGE 40-65 [facility], [address], [place], [place], [address], tel:[phone] [facility] Physical (chief complaint) Routine Medical ExamInsomnia, OtherHEMATURIA NOSUnspecified vitamin d deficiencyRoutine Medical Exam Jun- 5 Hubert Wyatt. [address], [place], [place], [address] , . [phone] Referring Provider: Gissell Crouch [address], [place], [place], [address]. tel:[phone] PREV VISIT, EST, AGE 40-65 [facility], [address], [place], [place], [address], tel:[phone] [facility] Physical (chief complaint) Routine Medical ExamSciaticaLumbago Routine Medical Exam 4 Hubert Wyatt. [address], [place], [place], [address] , [place]. [phone] Family History Family Member Type Diagnosis Age At Onset Mother Problem (finding) Alive and well Father Problem (finding) Hyperlipidemia Brother Problem (finding) Alive and well Payers Payer name Insurance type Covered republican ID Authoriza tion(s) No Information Social History Type Description Quantity Date Captured Comments Alcohol Use Details No Caffeine Use Details Unknown Tobacco Use Status Never smoked tobacco 2022 Smoking Status Never smoker Sex Female Vital Signs Date / Time: Height Weight BMI Pulse Rate Blood Pressure Temperature Respiratory Rate Body Surface Area Head Circumference BMI percentile Pulse Ox Inhaled Ox 4:12 PM 60.00 in 105.40 lbs 20.5 8 kg/m eter (2) 87 /min 110/70 mm[Hg] 98.3 F 16 /min Chief Complaint And Reason For Visit From encounter dated '05/29/2022 16:08'. physical (chief complaint). Description: Pt needs annual physical Pt has chronic insomnia Pt takes ambien qhs PRn and doing ok Pt denies any snoring Pt doing well with ambien. Pt does have mild sinusallergy and she uses flonase pt denies any purulent drainage pt denies any sore throat or cough Pt denies any other complaints Plan Of Treatment Date Type Action Status Goal Special diet education compl eted Referral Ordered: MAMMOGRAM, SCREENING ordered Referral Ordered: COLONOSCOPY AND BIOPSY ordered Referral Ordered: Physical Therapy (related to Lumbago) ordered Referral Referred To: Physical Therapy Ordered: Referral: Physical Therapy. Evaluate and treat. ordered Referral Ordered: HIP XRAY AP/LAT Left ordered History Of Present Illness Encounter Date Complaint History Of Prese nt Illness physical Pt needs annual physical Pt has chronic insomnia Pt takes ambien qhs PRn and doing ok Pt denies any snoring Pt doing well with ambien. Pt does have mild sinus allergy and she uses flonase pt denies any purulent drainage pt denies any sore throat or cough Pt denies any other complaints postmeno1 Pt is postmeno f or at least 4 years .Pt has some vaginal dryness. Pt also has some hot flash as well. 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 She is curious about HRT sinus1 Pt has chronic s inus congestion. Pt has postnasal drainage. Pt denies any sore throat Pt is seeing ENT now Pt failed flonase insomnia1 Pt has chronic i nsomnia. Pt failed lunesta and she wants to go back to ambien. Pt denies any snoring or fatigue anxiety1 Pt has anxiety a nd depression pt states that lexapro caused dizziness ans stomach upset. Pt denies any suicidal or homicidal thought. Pt has some crying spells Pt feels very anxious and she feels depressed. Pt wants some xanax PRn for anxiety sick Pt c/o feeling m ild sore throat ,headache, sinus symptoms for 2-3 days .Pt denies any cough or sob Pt denies any fever. Pt wants COVID testing. UTI1 pt c/o UTI sympt oms since last night Pt has dysuria, frequency and urgency and some pelvic pressure. hematuria1 Pt has history o f hematuria Pt denies any UTI symptoms low D Pt has low D Pt denies any fx insomnia1 Pt has chronic i nsomnia. Pt takes ambien qhs PRn and doing ok Pt needs refill anxiety1 Pt has been feel ing anxious and depressed Pt denies any suicidal or homicidal thought ,pt has been having crying spells. Pt states that her daughter takes lexapro and she wants to try also . Physical Pt needs annual physical pt has chronic insomnia Pt denies any snoring or any trouble with breathing at night. Pt takes ambien qhs chronically and doing ok, Pt otherwise feels well Pt denies any fatigue or any chest pain or headache or sob or any other complaints. insomnia1 Pt has chronic i nsomnia Pt denies any snoring and trouble with breathing at night Pt takes ambien qhs and doing ok. Pt denies any other complaints insomnia1 Pt has chronic i nsomnia. Pt denies any snoring or any trouble with breathing or swallowing pt doing ok with ambien insomnia1 Pt has chronic i nsomnia Pt denies any snoring and trouble with breathing at night Pt takes ambien qhs and doing ok. Pt denies any other complaints insomnia1 Pt has chronic i nsomnia. Pt denies any snoring or any trouble with breathing at night Pt takes ambien qhs PRN and doing ok colon Ca Pt wants colon C A screening. Pt denies any Gi issue. Pt denies any blood in stool insomnia1 Pt has chronic i nsmonia. Pt denies any snoring. Pt takes ambien qhs PRn and doing ok. Pt denies any other complaints PHysical PT needs annual physical. Pt has hematuria and some bladder retention issue. Pt went to see urology recently and she had cystoscopy and negative Ct urogram and she was told by urology that nothing to worry about. Pt denies any UTI symptoms. Pt has chornic insomnia and she takes ambien and doing ok Pt denies any snoring or any trouble with breathing at night Pt no longer has depression anymore. Pt is not taking any lexapro. Pt denies any suicial or homicdial thought. Pt denies any other complaints depression1 Pt has been havi ng some depression lately. Her children are leaving to college and she has been having crying spells and having been feeling sad. Pt denies any suicidal or homicidasl thought. insomnia1 Pt denies any sn oring pt takes ambien qhs for years. Pt states that she does not snore and she does not feel tired. Pt states that she just has to have ambien to sleep. hematuria1 Pt has chronic r ecurrent hematuria. Pt denies any UTI symptoms. Pt told me he has hematuria for long time. Pt has history of OAB but failed medical treatment in the past Pt has frequent urination Physical Pt needs annual physical. Pt has chornic insomnia. Pt takes ambien qhs PRN and doing ok Pt denies any snoring or any trouble with breathing at night. P nettie any uTI symptoms. Pt has history of hematuria but no UTI symptoms. Pt denies any other complaints depression The patient pres ents with anxious/fearful thoughts but denies fatigue. The patient denies any headache and vomiting. Additional information: Pt c/o feeling depressed for several months. Pt denies any suicidal or homcidial thought. Pt has poor mood and lack of motivation. Pt feels anxious also and does not want to be around other people. sinus Pt has persisten t sinus congestion and pressure and running nose for several months. Pt failed OTC meds Pt denies any sore throat. . Pt notices sinus pain. Pt c/o left ear pain for several days. Pt notices sometimes blood from nasal drainage Instructions Date Instruction Additional Infor mation Special diet education Related t o Body mass index (BMI) 20.0-20.9, adult Increase physical activity Relat ed to Insomnia Weight management Related to Ins omnia Increase physical activity Relat ed to Insomnia Increase physical activity Relat ed to Insomnia Prescribed Activity and Exercise Education Related to Dietary Surveillance and Counseling Prescribed Diet Educ ation/Lifestyle Education Regarding Diet Related to Dietary Surveillance and Counseling Increase physical activity Relat ed to Insomnia Assessments Type Assessment Date assessment Encounter for general adult medi anitha exam w abnormal findings assessment Primary insomnia assessment Allergic rhinitis due to pollen Mental Status Date Cognitive Assessment Orientation - [place] ed to time, place, person, situation.
--- OUTSIDE RECORDS SUMMARY | 2024-07-05 09:50 | XMS_ITS | Referral Summary ---
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
--- OUTSIDE RECORDS SUMMARY | 2024-07-05 09:51 | XMS_ITS | Clinical Summary ---
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
[2024-07-05 10:28] VITALS: BP 146/90; PULSE 110; RESP 16; TEMP 36.1; O2SAT 100
--- OUTSIDE RECORDS SUMMARY | 2024-07-05 11:46 | XMS_ITS | Continuity of Care Document ---
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 [address], [place], [place], [address] , [place]. tel:[phone] Referring Provider: Gissell Crouch [facility], [place], [place], [address]. tel:[phone] OFFICE/OUTPA TIENT VISIT, [facility], [address], [place], [place], [address], [place] tel:[phone] [facility] insomnia1 (chief complaint) sinus1 (chief complaint) postmeno1 (chief complaint) Primary insomniaPostmenopau leny statusNasal congestion 2 Hubert Tuttle [address], [place], [place], [address] , [place]. tel:[phone] Referring Provider: Gissell Crouch A, [place], [place], [address]. tel:[phone] OFFICE/OUTPA TIENT VISIT, [facility], [address], [place], [place], [address], [place] tel:[phone] [facility] UTI1 (chief complaint) sick (chief complaint) anxiety1 (chief complaint) Generalized Anxiety DisorderUrinary tract infectionViral infection 1 Hubert Tuttle [address], [place], [place], [address] , [place]. tel:[phone] Referring Provider: Gissell Crouch A, [place], [place], [address]. tel:[phone] OFFICE/OUTPA TIENT VISIT, [facility], [address], [place], [place], [address], [place] tel:[phone] [facility] anxiety1 (chief complaint) insomnia1 (chief complaint) low D (chief complaint) hematuria1 (chief complaint) InsomniaHematuriaGe neralized Anxiety DisorderVitamin D deficiency, unspecifiedEncounte r for oth screening for malignant neoplasm of breast 0 Hubert Wyatt. [address], [place], [place], [address] , [place]. tel:[phone] Referring Provider: Gissell Crouch [address], [place], [place], [address]. tel:[phone] PREV VISIT, EST, AGE 40-64 [facility], [address], [place], [place], [address], tel:[phone] [facility] Physical (chief complaint) Encntr for general adult medical exam w/o abnormal findings 0 Hubert Wyatt. [address], [place], [place], [address] , [place]. tel:[phone] Referring Provider: Gissell Crouch [address], [place], [place], [address]. tel:[phone] OFFICE/OUTPA TIENT VISIT, EST [facility], [address], [place], [place], [address], [place] tel:[phone] [facility] insomnia1 (chief complaint) Insomnia 9 Hubert Wyatt. [address], [place], [place], [address] , [place]. tel:[phone] Referring Provider: Gissell Crouch [address], [place], [place], [address]. tel:[phone] OFFICE/OUTPA TIENT VISIT, EST [facility], [address], [place], [place], [address], [place] tel:[phone] [facility] insomnia1 (chief complaint) Insomnia 9 Hubert Wyatt. [address], [place], [place], [address] , [place]. tel:[phone] Referring Provider: Edmundo Gaspar, [address], [place], [place], [address]. tel:[phone] OFFICE/OUTPA TIENT VISIT, [facility], [address], [place], [place], [address], [place] tel:[phone] [facility] insomnia1 (chief complaint) Insomnia 8 Hubert Wyatt. [address], [place], [place], [address] , [place]. [phone] Referring Provider: Edmundo Gaspar, [address], [place], [place], [address]. tel:[phone] OFFICE/OUTPA TIENT VISIT, [facility], [address], [place], [place], [address], [place] [phone] [facility] insomnia1 (chief complaint) Insomnia 8 Hubert Wyatt. [address], [place], [place], [address] , [place]. [phone] Referring Provider: Edmundo Gaspar, [address], [place], [place], [address]. tel:[phone] OFFICE/OUTPA TIENT VISIT, [facility], [address], [place], [place], [address], [place] tel:[phone] [facility] insomnia1 (chief complaint) colon Ca (chief complaint) InsomniaEncounter for screening for malignant neoplasm of colon 8 Hubert Wyatt. [address], [place], [place], [address] , [place]. [phone] Referring Provider: Gissell Crouch [address], [place], [place], [address]. tel:[phone] PREV VISIT, EST, AGE 40-64 [facility], [address], [place], [place], [address], [place] tel:[phone] [facility] PHysical (chief complaint) Encounter for general adult medical exam w abnormal findingsInsomniaHem aturia 0 7 Hubert Wyatt. [address], [place], [place], [address] , [place]. tel:[phone] Referring Provider: Gissell Crouch [address], [place], [place], [address]. tel:[phone] OFFICE/OUTPA TIENT VISIT, EST [facility], [address], [place], [place], [address], [place] [phone] [facility] hematuria1 (chief complaint) insomnia1 (chief complaint) depression 1 (chief complaint) InsomniaDepressionH ematuria 7 Hubert Wyatt. [address], [place], [place], [address] , [place]. tel:[phone] Referring Provider: Gissell Crouch [address], [place], [place], [address]. tel:[phone] PREV VISIT, EST, AGE 40-64 [facility], [address], [place], [place], [address], [place] [phone] [facility] Physical (chief complaint) Encounter for general adult medical exam w abnormal findingsInsomnia, unspecifiedHematuri a 6 Hubert Wyatt. [address], [place], [place], [address] , [place]. tel:[phone] Referring Provider: Gissell Crouch [address], [place], [place], [address]. tel:[phone] OFFICE/OUTPA TIENT VISIT, EST [facility], [address], [place], [place], [address], [place] [phone] [facility] sinus (chief complaint) depression (chief complaint) Chronic sinusitisInsomnia, unspecifiedChronic depression 5 Hubert Tuttle [address], [place], [place], [address] , [place]. tel:[phone] Referring Provider: Gissell Crouch [address], [place], [place], [address]. tel:[phone] PREV VISIT, EST, AGE 40-64 [facility], [address], [place], [place], [address], tel:[phone] [facility] Physical (chief complaint) Routine Medical ExamInsomnia, OtherHEMATURIA NOSUnspecified vitamin d deficiencyRoutine Medical Exam Jun- 5 Hubert Wyatt. [address], [place], [place], [address] , . [phone] Referring Provider: Gissell Crouch [address], [place], [place], [address]. tel:[phone] PREV VISIT, EST, AGE 40-64 [facility], [address], [place], [place], [address], tel:[phone] [facility] Physical (chief complaint) Routine Medical ExamSciaticaLumbago Routine Medical Exam 4 Hubert Wyatt. [address], [place], [place], [address] , [place]. [phone] Family History Family Member Type Diagnosis Age At Onset Mother Problem (finding) Alive and well Father Problem (finding) Hyperlipidemia Brother Problem (finding) Alive and well Payers Payer name Insurance type Covered alliance party ID Authoriza tion(s) No Information Social History [...] or cough Pt denies any other complaints insomnia1 Pt has chronic i nsomnia. Pt failed lunesta and she wants to go back to ambien. Pt denies any snoring or fatigue sinus1 Pt has chronic s inus congestion. Pt has postnasal drainage. Pt denies any sore throat Pt is seeing ENT now Pt failed flonase postmeno1 Pt is postmeno f or at least 4 years .Pt has some vaginal dryness. Pt also has some hot flash as well. her CANCER SPEC tried her on estrogen vaginal cream but did not help. She is curious about HRT UTI1 pt c/o UTI sympt oms since last night Pt has dysuria, frequency and urgency and some pelvic pressure. sick Pt c/o feeling m ild sore throat ,headache, sinus symptoms for 2-3 days .Pt denies any cough or sob Pt denies any fever. Pt wants COVID testing. anxiety1 Pt has anxiety a nd depression pt states that lexapro caused dizziness ans stomach upset. Pt denies any suicidal or homicidal thought. Pt has some crying spells Pt feels very anxious and she feels depressed. Pt wants some xanax PRn for anxiety anxiety1 Pt has been feel ing anxious and depressed Pt denies any suicidal or homicidal thought ,pt has been having crying spells. Pt states that her daughter takes lexapro and she wants to try also . insomnia1 Pt has chronic i nsomnia. Pt takes ambien qhs PRn and doing ok Pt needs refill low D Pt has low D Pt denies any fx hematuria1 Pt has history o f hematuria Pt denies any UTI symptoms Physical Pt needs annual physical pt has [...] takes ambien qhs PRN and doing ok insomnia1 Pt has chronic i nsmonia. Pt denies any snoring. Pt takes ambien qhs PRn and doing ok. Pt denies any other complaints colon Ca Pt wants colon C A screening. Pt denies any Gi issue. Pt denies any blood in stool PHysical PT needs annual physical. Pt has [...] homicdial thought. Pt denies any other complaints hematuria1 Pt has chronic r ecurrent hematuria. Pt denies any UTI symptoms. Pt told me he has hematuria for long time. Pt has history of OAB but failed medical treatment in the past Pt has frequent urination insomnia1 Pt denies any sn oring pt takes ambien qhs for years. Pt states that she does not snore and she does not feel tired. Pt states that she just has to have ambien to sleep. depression1 Pt has been havi ng some depression lately. Her children are leaving to college and she has been having crying spells and having been feeling sad. Pt denies any suicidal or homicidasl thought. Physical Pt needs annual physical. Pt has chornic insomnia. Pt takes ambien qhs PRN and doing ok Pt denies any snoring or any trouble with breathing at night. P nettie any uTI symptoms. Pt has history of hematuria but no UTI symptoms. Pt denies any other complaints sinus Pt has persisten t sinus congestion and pressure and running nose for several months. Pt failed OTC meds Pt denies any sore throat. . Pt notices sinus pain. Pt c/o left ear pain for several days. Pt notices sometimes blood from nasal drainage depression The patient pres ents with anxious/fearful thoughts but denies fatigue. The patient denies any headache and vomiting. Additional information: Pt c/o feeling depressed for several months. Pt denies any suicidal or homcidial thought. Pt has poor mood and lack of motivation. Pt feels anxious also and does not want to be around other people. Instructions Date Instruction Additional Infor bradford Special diet education Related t o Body [...] Mental Status Date Cognitive Assessment Orientation - Cutler ed to time, place, person, situation.
--- OUTSIDE RECORDS SUMMARY | 2024-07-05 11:47 | XMS_ITS | Clinical Summary ---
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
[2024-07-05 12:00] LABS: Basophils Percent Auto 0.3 % (0.2-1.2); Eosinophils Absolute Auto 0.1 K/mm3 (0-0.3); Eosinophils Percent Auto 1.8 % (0-4.4); Hematocrit 44.1 % (37.0-47.0); Hemoglobin 14.8 g/dL (12.0-15.0); Immature Granulocyte Absolute 0.03 K/mm3 (0.00-0.031); Immature Granulocyte Percent A 0.5 % (0-0.5); Lymphocytes Absolute Auto 0.71 K/mm3 (0.9-3.2); Lymphocytes Percent Auto 11.5 % (18.3-44.2); Mean Corpuscular HGB Conc 33.6 g/dl (32-36); Mean Corpuscular Volume 89.3 fl (80-100); Mean Platelet Volume 9.5 fl (7.4-10.4); Monocytes Absolute Auto 0.4 K/mm3 (0.1-0.6); Monocytes Percent Auto 6.1 % (2.6-8.5); Neutrophils Absolute Auto 4.9 K/mm3 (1.3-6.7); Neutrophils Percent Auto 79.8 % (45.5-73.1); Platelet Count Result 211 k/mm3 (150-375); Red Blood Count 4.94 M/mm3 (4.2-5.4); Red Cell Distribution Width 12.8 % (11.5-14.5); White Blood Count 6.2 K/mm3 (4.5-10.0)
[2024-07-05] MEDS: SODIUM CHLORIDE 0.9% IV 1,000 ML 999 ML IV CONT (12:00)
[2024-07-05] MEDS: KETOROLAC 30 MG/ML VIAL (*BKC) IV PUSH (12:02)
[2024-07-05 12:06] LABS: Add Urine Microscopic? YES; Appearance Urine Clear (Clear); Bacteria Urine None Seen /hpf; Bilirubin Urine Negative (Negative); Blood Urine 2+ (Negative); Color Urine Yellow (Yellow); Glucose Urine UA Negative (Negative); Ketones Urine Trace mg/dL (Negative); Leukocyte Esterase Ur Negative LEU/UL (Negative); Nitrate Urine Negative (Negative); Non Pathogenic Casts 0-2; Protein Urine Negative (Negative); RBC Urine 21-50 /hpf (0-2); Specific Grav Ur 1.015 (1.001-1.035); Squamous Epithelial Cell Urine None Seen /hpf (Few); Urobilinogen Urine 0.2 mg/dL (<2.0); WBC Urine 0-5 /hpf (0-3); pH Urine 7.5 (5.0-9.0)
[2024-07-05 12:12] LABS: Alanine Aminotransferase 16 U/L (6-35); Albumin Level 4.9 g/dL (3.5-5.1); Alkaline Phosphatase 111 U/L (38-126); Anion Gap 15 mmol/L (4-12); Aspartate Amino Transferase 22 U/L (14-36); Bilirubin,Total 0.7 mg/dL (0.2-1.3); Blood Urea Nitrogen 11 mg/dL (7-17); Calcium 9.7 mg/dL (8.4-10.2); Carbon Dioxide 20 mmol/L (22-30); Chloride 106 mmol/L (98-107); Estimated CRCL calculation 44 ml/min; Estimated Glomerular Filt Rate > 60; Glucose 109 mg/dL (65-110); Sodium 141 mmol/L (137-145)
--- NOTE | 2024-07-05 13:56 | ED.ABDPAIN ---
HPI - Abdominal Pain General Chief Complaint: Abdominal Pain Stated Complaint: abdominal pain Time Seen by Provider: 07/05/24 11:15 Source: patient Mode of arrival: ambulatory Limitations: no limitations History of Present Illness HPI narrative: 59-year-old with a history of anxiety recurrent UTIs here with the complaints of lower abdominal pain, vaginal pain and rectal pain with started few days ago. Patient was seen 2 days ago was diagnosed with urinary tract infection was started on antibiotic. Patient also states that she had a CT scan of the abdomen which was unremarkable. She still continues to have pain. She denies any fever or chills. MD elicited complaint: abdominal pain Pertinent past history: other (Frequent UTIs) Quality: aching Radiation: suprapubic Migration to: no migration Exacerbating factors: nothing Relieving factors: nothing Related Data Allergies Allergy/AdvReac Type Severity Reaction Status Date / Time blue dye Allergy Mild Hives / Verified 07/05/24 11:17 Red Face sulfamethoxazole (From AdvReac Hallucinati Verified 07/05/24 11:17 Bactrim) ng trimethoprim (From Bactrim) AdvReac Hallucinati Verified 07/05/24 11:17 ng Review of Systems Review of Systems: All systems reviewed & are unremarkable except as noted in HPI and below Constitutional: Constitutional: Reports no additional constitutional complaints Eyes: Eyes: Reports no additional eye complaints ENT: Reports system reviewed and no additional complaints, except as documented Cardiovascular: Cardiovascular: Reports no additional cardiovascular complaints Respiratory: Respiratory: Reports no additional respiratory complaints Gastrointestinal: Gastrointestinal: Reports as per HPI Genitourinary: Genitourinary: Reports as per HPI Neurologic: Reports system reviewed and no additional complaints, except as documented [facility] Past Medical History Medical History Breast pain, left Dense breast tissue on mammogram Dense breast Dysuria Right knee pain Left knee pain Microscopic hematuria Screening for breast cancer Seasonal allergies Skin Abnormalities Seborrheic keratosis Insomnia Anxiety Encounter to establish care Pelvic floor dysfunction Sciatica Keratosis Retention of urine, unspecified Depression UTI (urinary tract infection) Surgical History Surgical History History of carpal tunnel surgery Family History Family History Father FH: prostate cancer Depression Grandparent Breast cancer Social History Social History Smoking status: Never smoker Alcohol intake: never Substance use: never Lack of Transportation: No Lack of Food: Never True Current Housing: I Have Housing Concerned About Future Housing: No Difficulty Paying Gas/Electric Bills: No Difficulty Paying for Meds: No Currently Unemployed: YES Education: Trade/Vocational Certificate Difficulty w/ Childcare or Family Care: No Gender identity (if verbalized by the patient): Female Exam Narrative: GENERAL: Well-appearing, thin and crying and in no acute distress. HEAD: Normocephalic, atraumatic. EYES: PERRLA and EOMI. ENT: Nares clear, no rhinorrhea or epistaxis. Mucous membranes moist. NECK: Supple. CHEST: Clear to auscultation. No respiratory distress. HEART: Regular rate and rhythm. No murmur heard. Normal peripheral pulses. ABDOMEN: Soft, nontender, nondistended, normal active bowel sounds. EXTREMITIES: Normal range of motion. No edema. SKIN: Warm, dry, no rash. NEURO: No focal deficits. Alert and oriented x3. PSYCH: Normal mood and affect. Course Course Emergency Course: Notified patient and family about her lab work. Advised her to take Bentyl for pain continue antibiotic. Follow with the primary doctor. Vital Signs Vital signs: Vital Signs Temperature 36.1 C L 07/05/24 10:28 Pulse Rate 110 H 07/05/24 10:28 Respiratory Rate 16 07/05/24 10:28 Blood Pressure 146/90 H 07/05/24 10:28 Pulse Oximetry 100 07/05/24 10:28 Oxygen Delivery Room Air 07/05/24 10:28 Temperature 36.1 C L 07/05/24 10:28 Pulse Rate 110 H 07/05/24 10:28 Respiratory Rate 16 07/05/24 10:28 Blood Pressure 146/90 H 07/05/24 10:28 Pulse Oximetry 100 07/05/24 10:28 Oxygen Delivery Room Air 07/05/24 10:28 MDM - Abdominal Pain Lab Data 07/05/24 11:51 07/05/24 11:51 Labs: Lab Results 07/05/24 Range/Units 11:51 WBC 6.2 (4.5-10.0) K/mm3 RBC 4.94 (4.2-5.4) M/mm3 Hgb 14.8 (12.0-15.0) g/dL Hct 44.1 (37.0-47.0) % MCV 89.3 (80-100) fl MCH 30.0 (26-34) pg MCHC 33.6 (32-36) g/dl RDW 12.8 (11.5-14.5) % Plt Count 211 (150-375) k/mm3 MPV 9.5 (7.4-10.4) fl Immature Gran % (Auto) 0.5 (0-0.5) % Neut % (Auto) 79.8 H (45.5-73.1) % Lymph % (Auto) 11.5 L (18.3-44.2) % [place] % (Auto) 6.1 (2.6-8.5) % Eos % (Auto) 1.8 (0-4.4) % Baso % (Auto) 0.3 (0.2-1.2) % Lymph # (Auto) 0.71 L (0.9-3.2) K/mm3 [place] # (Auto) 0.4 (0.1-0.6) K/mm3 Eos # (Auto) 0.1 (0-0.3) K/mm3 Baso # (Auto) 0.0 (0.0-0.1) K/mm3 Abs Immat Gran (auto) 0.03 (0.00-0.031) K/mm3 Absolute Neuts (auto) 4.9 (1.3-6.7) K/mm3 Absolute Nucleated RBC 0.000 (0.0-0.012) K/mm3 Nucleated RBC % 0.0 (0.0-0.2) % Sodium 141 (137-145) mmol/L Potassium 4.0 (3.4-5.0) mmol/L Chloride 106 (98-107) mmol/L Carbon Dioxide 20 L (22-30) mmol/L Anion Gap 15 H (4-12) mmol/L BUN 11 (7-17) mg/dL Creatinine 0.87 (0.7-1.0) mg/dL Estim Creat Clear Calc 44 ml/min Estimated GFR > 60 (59 - ) Glucose 109 (65-110) mg/dL Calcium 9.7 (8.4-10.2) mg/dL Total Bilirubin 0.7 (0.2-1.3) mg/dL AST 22 (14-36) U/L ALT 16 (6-35) U/L Alkaline Phosphatase 111 (38-126) U/L Total Protein 8.0 (6.3-8.2) g/dL Albumin 4.9 (3.5-5.1) g/dL Urine Color Yellow (Yellow) Urine Appearance Clear (Clear) Urine pH 7.5 (5.0-9.0) Ur Specific [place] 1.015 (1.001-1.035) Urine Protein Negative (Negative) mg/dL Urine Glucose (UA) Negative (Negative) mg/dL Urine Ketones Trace H (Negative) mg/dL Ur Blood (Man) 2+ H (Negative) Urine Nitrate Negative (Negative) Urine Bilirubin Negative (Negative) Urine Urobilinogen 0.2 (<2.0) mg/dL Leukocyte Esterase Rfl Negative (Negative) OSIEL/UL Urine RBC 21-50 H (0-2) /hpf Urine WBC 0-5 (0-3) /hpf Ur Squamous Epith Cells None seen (Few) /hpf Urine Bacteria None seen /hpf Urine Casts 0-2 Discharge Plan Discharge Clinical Impression: Dysuria, Enteritis Patient Disposition: Home, Self-Care Condition: Stable Instructions: Enteritis (ED) Additional Instructions: continue home medication, take bentyl for pain Patient Language: Tamazight Prescriptions: New dicyclomine 20 mg tablet 20 mg PO QID PRN (Reason: abdominal pain) Qty: 30 0RF No Action buspirone 15 mg tablet 15 mg PO BID Qty: 60 11RF zolpidem [Ambien] 10 mg tablet 5 - 10 mg PO QHS PRN (Reason: insomnia) Qty: 30 5RF amoxicillin-pot clavulanate [Augmentin] 500-125 mg tablet 1 tablet PO Q12H Qty: 14 0RF bacitracin zinc-polymyxin B 500-10,000 unit/gram ointment 1 applic topical DAILY Qty: 14.2 1RF alprazolam 0.25 mg tablet 0.25 mg PO BID PRN (Reason: anxiety with flying) Qty: 4 0RF trazodone 100 mg tablet 100 mg PO QHS PRN (Reason: insomnia) Qty: 90 3RF Follow-up/Referrals: Letitia Nugent NP [Primary Care Provider] - Time of Disposition: 14:00
== END 2024-07-05 14:30 | disposition home or self-care (01) ==
PROVIDERS: Emergency Provider Family Medicine; PCP Nurse Practitioner Family
DX: K52.9 Noninfective gastroenteritis and colitis, unspecified (principal); R30.0 Dysuria; F41.9 Anxiety disorder, unspecified; F32.A Depression, unspecified; Z87.440 Personal history of urinary (tract) infections; Z79.899 Other long term (current) drug therapy
CPT/HCPCS: 36415; 80053; 81001; 85025; 96361; 96374; 99284; J1885; J7030